=== PATIENT | male | born 1950 | race Two or more races ===

== ENCOUNTER → 2024-05-12 | Outpatient (CLI) | payer MEDICARE ==
[~2024-05-12] VITALS: Ht 182.9 cm; Wt 87.1 kg
[2024-05-12] MEDS: REGADENOSON 0.4 MG/5 ML SYRG IV ONE (10:07)
--- NOTE | 2024-05-12 13:10 | DVHSR ---
APPROVED REPORT Exam: Nuclear Stress Test BMI: 0 Stress Test Details HR Max Heart Rate (APMHR): 149.140970 bpm Target HR (85% APMHR): 126.035503 bpm BP ECG Stress ECG Conclusion Resting ECG shows normal sinus rhythm. At peak stress level no dynamic no dynamic EKG changes was no nita to suggest ischemia. 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 Stress images shows small area of reduced uptake in the inferior basal to mid segment likely represen ting old inferior infarct or diaphragmatic attenuation with a minimal yaw-infarct ischemia. Borderline reduced left ventricular systolic function at 50%. 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 NM EXAM: Myocardial Perfusion REST/STRESS Imaging Protocol: Rest Tc-99m/Stress Tc-99m 1 day Resting Data Rest SPECT myocardial perfusion imaging was performed in supine position 60 minutes following the int ravenous injection of 8.9 mCi of Tc-99m Sestamibi. Time of rest injection: 0830 Time of rest imagin Administration Route: IV Administration Site: Left Arm Pharmacologic Stress Pharmacologic stress test was performed by injecting Regadenoson 0.4 mg IV push followed by the intra venous injection of 23.5 mCi of Tc-99m Sestamibi. Pharmacologic stress test performed using dobutamine initiated at 5 mcg/kg/min titrated sequentially at 10, 20, 30 and 40 mcg/kg/min to target heart rate. The radioisotope is given IV when 85% of MHR is maintained for 1 min using mCi of Time of stress injection: 1009 Time of stress imagin Administration Route: IV Administration Site: Left Arm Gated Stress SPECT was performed 60 minutes after stress injection. The images were gated to evaluate regional wall motion and calculate left ventricular ejection fracti on. Exercise Stress The images were gated to evaluate regional wall motion and calculate left ventricular ejection fracti on. Stress only was performed in the Supine position. Nuclear Conclusion ECG Findings: negative for ischemia Clinical Findings: negative for ischemia Nuclear Findings: negative for ischemia Exercise Capacity: not assessed Left Ventricular Function: abnormal Risk Study: low Resting ECG shows normal sinus rhythm. At peak stress level no dynamic no dynamic EKG changes was no nita to suggest ischemia. 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 Stress images shows small area of reduced uptake in the inferior basal to mid segment likely represen ting old inferior infarct or diaphragmatic attenuation with a minimal yaw-infarct ischemia. Borderline reduced left ventricular systolic function at 50%. 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
== END | disposition home or self-care (01) ==
LOC: XYW 09:13
PROVIDERS: ATTEND Specialist
DX: I10 Essential (primary) hypertension (principal); E78.5 Hyperlipidemia, unspecified
CPT/HCPCS: 78452; 93017; A9500